=== PATIENT | female | born 1995 | race Caucasian/White ===

== ENCOUNTER 2019-07-15 22:13 | Inpatient (IN) ==
[~2019-07-15 22:13] MED LIST: *HR* Nalbuphine 10 MG/ML AMPUL IVP PRN; Famotidine 20 MG/2 ML VIAL IVP PRN; Metoclopramide 10 MG/2 ML VIAL IVP PRN; Naloxone 0.4 MG/ML INJ IVP PRN; Ondansetron 4 MG/2 ML VIAL IVP PRN; Ringers Solution, Lactated 500 ML IVC ONE
[2019-07-15] MEDS ORDERED: Ringers Solution, Lactated 1,000 ML IVC SCH (22:15)
[2019-07-15 22:32] LABS: Basophils % 0.3 %; Eosinophils # 0.1 K/mcL (0.0-0.6); Eosinophils % 0.9 %; Hematocrit 32.9 % (35.3-44.9); Hemoglobin 11.3 g/dL (11.5-15.4); Immature Granulocytes % 0.3 % (0-4); Lymphocytes # 1.6 K/mcL (0.6-4.6); Lymphocytes % 23.5 %; Mean Corpuscular HGB Conc 34.3 g/dL (31.6-35.5); Mean Corpuscular Hemoglobin 28.6 pg (28.0-33.3); Mean Corpuscular Volume 83.3 fL (83.0-100.0); Mean Platelet Volume 10.5 fL (9.4-12.4); Monocytes # 0.5 K/mcL (0.0-1.3); Monocytes % 7.3 %; Neutrophils # 4.5 K/mcL (1.6-8.9); Platelet Count 193 K/mcL (140-400); Red Blood Count 3.95 M/mcL (3.82-4.97); Red Cell Distribution Width 12.4 % (11.5-14.5); Segmented Neutrophils % 67.7 %; White Blood Count 6.7 K/mcL (4.3-11.1)
[2019-07-15 22:40] LABS: Amphetamine Screen,Urine Negative ng/mL (Cutoff=1000); Barbiturate Screen,Urine Negative ng/mL (Cutoff=200); Benzodiazepines Screen,Urine Negative ng/mL (Cutoff=200); Cannabinoid Screen,Urine Negative ng/mL (Cutoff = 50); Cocaine Screen,Urine Negative ng/mL (Cutoff= 300); Opiate Screen,Urine Negative ng/mL (Cutoff=300); Phencyclidine Screen,Urine Negative ng/mL (Cutoff=25)
[2019-07-16] MEDS ORDERED: Bupivacaine-MPF 0.25% 10 ML VIAL ONE (03:51)
[2019-07-16] MEDS ORDERED: *HR* FentaNYL (PF) 100 MCG/2 ML VIAL ONE (03:51)
[2019-07-16] MEDS ORDERED: Epidural Premix (fent/bupiv) 110 ML EP ONE (03:57)
[2019-07-16] MEDS ORDERED: Epidural Premix (fent/bupiv) 110 ML EP SCH (04:00)
[2019-07-16] MEDS ORDERED: EPHEDrine 50 MG/ML VIAL ONE (04:38)
[2019-07-16] MEDS ORDERED: Oxytocin 20 units/ LR 1000 mL 20 UNIT/1,000 ML BAG IVC SCH ×2 (06:00→08:40)
[2019-07-16] MEDS ORDERED: Lanolin 7 G OINT...G. TP PRN (08:40)
[2019-07-16] MEDS ORDERED: Rho Immune Globulin 1,500 UNIT SYRINGE IM PRN (08:40)
[2019-07-16] MEDS ORDERED: Measles/Mumps/Rubella Vacc 0.5 ML VIAL SQ PRN (08:40)
[2019-07-16] MEDS ORDERED: Benzocaine/Menthol 56 GM AEROSOL SPRAY TP PRN (08:40)
[2019-07-16] MEDS: Ibuprofen 600 MG TABLET PO PRN ×2 (09:44→20:28)
[2019-07-16] MEDS: Prenatal Vit/FA 1 EACH TABLET PO SCH (09:44)
[2019-07-17] MEDS: Acetaminophen 325 MG TABLET PO PRN ×2 (01:19→07:45)
[2019-07-17] MEDS: Ibuprofen 600 MG TABLET PO PRN ×2 (04:11→10:51)
[2019-07-17] MEDS: Prenatal Vit/FA 1 EACH TABLET PO SCH (07:45)
[2019-07-17 08:05] VITALS: BP 127/74
== END 2019-07-17 13:00 | disposition home or self-care (01) | DRG 560 ==
LOC: 1NENULAB → 1NENUOBS 07-16 08:40
PROVIDERS: ADMIT Registered Nurse; ATTEND Registered Nurse

== ENCOUNTER 2021-03-15 11:42 | Observation (INO) ==
[2021-03-15 13:12] LABS: Bacteria,Urine Few per hpf (None-Few); Bilirubin,Urine Negative (Negative); Blood,Urine Negative (Negative); Clarity,Urine Turbid (Clear); Color,Urine Yellow (Yellow); Glucose,Urine (UA) Normal (Normal); Ketones,Urine 20 mg/dL (Negative); Leukocyte Esterase,Urine Large (Negative); Mucus,Urine Moderate per lpf (None-Few); Nitrite,Urine Negative (Negative); Protein,Urine 70 mg/dL (Neg-Trace); Squamous Epithelial Cell,Urine Moderate per hpf (None-Few); Urobilinogen,Urine Normal (Normal); WBC,Urine 15-30 per hpf (0-3)
== END 2021-03-15 15:42 | disposition home or self-care (01) ==
LOC: 1NENULAB
PROVIDERS: ADMIT Registered Nurse; ATTEND Registered Nurse

== ENCOUNTER → 2021-03-16 13:39 | Observation (INO) | END | disposition home or self-care (01) | LOC: 1NENULAB | PROVIDERS: ADMIT Advanced Practice Midwife; ATTEND Advanced Practice Midwife ==

== ENCOUNTER 2021-04-02 06:18 | Inpatient (IN) ==
[2021-04-02] MEDS ORDERED: Metoclopramide 10 MG/2 ML VIAL IVP PRN (06:44)
[2021-04-02] MEDS ORDERED: *HR* Nalbuphine 10 MG/ML AMPUL IV PRN (06:44)
[2021-04-02] MEDS ORDERED: Lidocaine 1% 20 ML MDV INFILT PRN (06:44)
[2021-04-02] MEDS ORDERED: Azithromycin 500 MG in 0.9 % Sodium Chloride 250 ML IVPB PRN (06:44)
[2021-04-02] MEDS ORDERED: Famotidine 20 MG/2 ML VIAL IVP PRN (06:44)
[2021-04-02] MEDS ORDERED: Ondansetron 4 MG/2 ML VIAL IVP PRN (06:44)
[2021-04-02] MEDS ORDERED: Ringers Solution, Lactated 1,000 ML IVC SCH (06:45)
[2021-04-02] MEDS ORDERED: Oxytocin 20 units/ LR 1000 mL 20 UNIT/1,000 ML BAG IVC SCH ×2 (07:00→16:00)
[2021-04-02 07:56] LABS: Eosinophils % 0.2 %; Hematocrit 36.6 % (35.3-44.9); Immature Granulocytes % 0.5 % (0-4); Lymphocytes # 0.4 K/mcL (0.6-4.6); Mean Corpuscular HGB Conc 32.8 g/dL (31.6-35.5); Mean Corpuscular Hemoglobin 28.2 pg (28.0-33.3); Mean Corpuscular Volume 85.9 fL (83.0-100.0); Mean Platelet Volume 9.8 fL (9.4-12.4); Monocytes # 0.3 K/mcL (0.0-1.3); Monocytes % 5.9 %; Neutrophils # 3.8 K/mcL (1.6-8.9); Platelet Count 173 K/mcL (140-400); Red Blood Count 4.26 M/mcL (3.82-4.97); Red Cell Distribution Width 14.6 % (11.5-14.5); Segmented Neutrophils % 84.4 %; White Blood Count 4.4 K/mcL (4.3-11.1)
[2021-04-02 08:43] LABS: Influenza A PCR Negative (Negative); Influenza B PCR Negative (Negative); Resp. Syncytial Virus PCR Negative (Negative)
[2021-04-02 08:45] LABS: SARS-CoV-2 by PCR (In House) Negative (Negative)
[2021-04-02 09:11] LABS: Alanine Aminotransferase 17 Units/L (7-52); Aspartate Amino Transferase 25 Units/L (13-39); BUN/Creatinine Ratio 20 (6-26); Blood Urea Nitrogen 10 mg/dL (6-20); Lactate Dehydrogenase 245 Units/L (140-271); Uric Acid 5.3 mg/dL (2.3-7.6); eGFR For African Americans > 60 (> 60); eGFR For Non-African Americans > 60 (> 60)
[2021-04-02 10:39] LABS: Amphetamine Screen,Urine Negative ng/mL (Cutoff=1000); Barbiturate Screen,Urine Negative ng/mL (Cutoff=200)
[2021-04-02 10:40] LABS: Benzodiazepines Screen,Urine Negative ng/mL (Cutoff=300); Cannabinoid Screen,Urine Negative ng/mL (Cutoff = 50); Cocaine Screen,Urine Negative ng/mL (Cutoff= 300); Opiate Screen,Urine Negative ng/mL (Cutoff=300); Phencyclidine Screen,Urine Negative ng/mL (Cutoff=25)
[2021-04-02] MEDS ORDERED: *HR* FentaNYL (PF) 100 MCG/2 ML VIAL EP ONE (12:12)
[2021-04-02] MEDS ORDERED: Ropivacaine/PF 0.2% 20 ML VIAL EP ONE (12:12)
[2021-04-02] MEDS ORDERED: EPHEDrine 50 MG/ML VIAL IVP PRN (12:12)
[2021-04-02] MEDS ORDERED: Epidural Premix (fent/bupiv) 110 ML EP SCH (12:15)
[2021-04-02] MEDS ORDERED: Epidural Premix (fent/bupiv) 110 ML EP ONE (12:15)
[2021-04-02 13:09] LABS: Creatinine,Urine 203 mg/dL; Protein/Creatinine Ratio,Urine 0.25 mg/mg (0.00-0.20)
[2021-04-02] MEDS ORDERED: Benzocaine/Menthol 56 GM AEROSOL SPRAY TP PRN (15:47)
[2021-04-02] MEDS ORDERED: Rho Immune Globulin 1,500 UNIT SYRINGE IM PRN (15:47)
[2021-04-02] MEDS ORDERED: Ondansetron ODT 4 MG TAB.RAPDIS SL PRN (15:47)
[2021-04-02] MEDS ORDERED: Lanolin 7 G OINT...G. TP PRN (15:47)
[2021-04-02] MEDS ORDERED: Oxytocin 20 units/ LR 1000 mL 20 UNIT/1,000 ML BAG IVC ONE (15:47)
[2021-04-02] MEDS ORDERED: Measles/Mumps/Rubella Vacc 0.5 ML VIAL SQ PRN (15:47)
[2021-04-02] MEDS ORDERED: Prenatal Vit/FA 1 EACH TABLET PO SCH (16:00)
[2021-04-02] MEDS: Ibuprofen 600 MG TABLET PO SCH (18:51)
[2021-04-02] MEDS: Acetaminophen 325 MG TABLET PO SCH (21:07)
[2021-04-03] MEDS: Ibuprofen 600 MG TABLET PO SCH (05:15)
[2021-04-03 08:22] VITALS: BP 136/86; PULSE 106; TEMP 98.3; O2SAT 98
[2021-04-03] MEDS: Acetaminophen 325 MG TABLET PO SCH (09:17)
== END 2021-04-03 18:17 | disposition home or self-care (01) | DRG 560 ==
LOC: 1NENULAB 06:18 → 1NENUOBS 18:09
PROVIDERS: ADMIT Advanced Practice Midwife; ATTEND Advanced Practice Midwife